=== PATIENT | male | born 1945 | race Caucasian/White ===

== ENCOUNTER → 2017-04-27 | Outpatient (CLI) | payer MEDICARE ==
[~2017-04-27] MED LIST: ASPI-1197 PO; ATEN100T PO; ATEN50TA PO; CLOP75TA14 PO; ISOS20TA7 PO; LOSA50TA37 PO; SIMV40TA59 PO; TAMS-1 PO; TRAM-355 PO
== END | disposition home or self-care (01) ==
LOC: RAH 14:17
PROVIDERS: ATTEND Physician Assistant Medical
DX: M51.36 Other intervertebral disc degeneration, lumbar region (principal); M48.061 Spinal stenosis, lumbar region without neurogenic claudication
CPT/HCPCS: 72100; 72148

== ENCOUNTER 2017-05-20 14:30 | Observation (INO) | payer MEDICARE ==
[~2017-05-20] VITALS: Ht 180.3 cm; Wt 110.1 kg
[2017-05-20 12:53] VITALS: BP 117/67
[2017-05-20 12:58] LABS: BASOPHILS % (AUTO) 0.6 % (0.0-5.0); EOSINOPHILS % (AUTO) 0.9 % (0.0-8.0); LYMPHOCYTES % (AUTO) 22.7 % (21.0-51.0); MEAN CORPUSCULAR HEMOGLOBIN 32.1 pg (27.0-33.0); MEAN CORPUSCULAR HGB CONC 34.6 g/dL (32.0-36.0); MEAN CORPUSCULAR VOLUME 92.8 fL (79-99); MONOCYTES % (AUTO) 10.1 % (3.0-13.0); NEUTROPHILS % (AUTO) 65.7 % (40.0-77.0); PLATELET COUNT (AUTO) 176 K/uL (130-400); RED BLOOD CELL COUNT(AUTO) 4.53 MIL/uL (4.50-6.20); RED CELL DISTRIBUTION WIDTH 13.8 % (11.0-15.5); WHITE BLOOD COUNT (AUTO) 6.8 K/uL (4.8-10.8)
[2017-05-20 13:12] LABS: POTASSIUM 4.4 mmol/L (3.5-5.1)
[~2017-05-20 14:30] MED LIST changes: -ATEN50TA PO
[2017-05-21] VITALS (21 sets, daily range): BP systolic 101–138; BP diastolic 60–85
[2017-05-21] MEDS: CEFAZOLIN SODIUM 1 GM VIAL IVP SCH ×2 (06:00→07:30)
[2017-05-21] MEDS ORDERED: LACTATED RINGERS 1000ML 1,000 ML IV ONE (06:33)
[2017-05-21] MEDS ORDERED: DURAMORPH PF1 MG/ML 10ML AMP IV ONE (06:37)
[2017-05-21] MEDS ORDERED: BUPIVACAINE/EPI/PF 0.25% 30ML VIAL IJ ONE (06:37)
[2017-05-21] MEDS ORDERED: BACITRACIN 50,000 UNIT VIAL ONE (06:38)
[2017-05-21] MEDS ORDERED: THROMBIN-JMI 20000 UNIT KIT TP ONE (06:38)
[2017-05-21] MEDS ORDERED: DEXAMETHASONE SOD PHOSPHATE 10MG/ML 1ML VIAL ONE (07:03)
[2017-05-21] MEDS ORDERED: GLYCOPYRROLATE 0.2 MG/ML 5 ML VIAL ONE (07:03)
[2017-05-21] MEDS ORDERED: LIDOCAINE PF 2% 5ML ABBOJECT ONE (07:03)
[2017-05-21] MEDS ORDERED: MIDAZOLAM HCL 1 MG/ML 2ML VIAL ONE (07:04)
[2017-05-21] MEDS ORDERED: PROPOFOL 10 MG/ML 20ML VIAL IV ONE (07:05)
[2017-05-21] MEDS ORDERED: FENTANYL CITRATE PF 50 MCG/1 ML 2ML VIAL ONE ×3 (07:05→10:05)
[2017-05-21] MEDS ORDERED: EPHEDRINE SULFATE 50 MG/ML AMPULE ONE (07:09)
[2017-05-21] MEDS ORDERED: CEFAZOLIN 2GM / 50 ML 50 ML IV SCH (10:30)
[2017-05-21] MEDS ORDERED: MORPHINE SULFATE 2 MG/ML 1ML SYG IVP PRN (10:30)
[2017-05-21] MEDS ORDERED: HYDROCODONE/ACETAMINOPHEN 5/325 MG TAB PO PRN (10:30)
[2017-05-21] MEDS ORDERED: SODIUM CHLORIDE 0.9% 10 ML VIAL IVP PRN (10:30)
[2017-05-21] MEDS ORDERED: PROMETHAZINE HCL 25 MG/ML 1ML AMPULE IM PRN (10:30)
[2017-05-21] MEDS ORDERED: CEFAZOLIN SODIUM 1 GM VIAL IVP SCH (11:00)
[2017-05-21] MEDS: DEXAMETHASONE SOD PHOSPHATE 4 MG/ML 1ML VIAL IVP SCH ×3 (12:09→22:33)
[2017-05-21] MEDS: TRAMADOL /APAP 37.5MG/325MG TAB PO SCH ×3 (12:10→22:35)
[2017-05-21] MEDS: LACTATED RINGERS 1000ML 1,000 ML IV SCH ×2 (12:11→23:33)
[2017-05-21] MEDS ORDERED: TAMSULOSIN HCL 0.4 MG CAP.ER.24H PO SCH (21:00)
[2017-05-21] MEDS ORDERED: ATORVASTATIN CALCIUM 10 MG TABLET PO SCH (21:00)
[2017-05-22 03:00] VITALS: BP 136/67
[2017-05-22] MEDS: DEXAMETHASONE SOD PHOSPHATE 4 MG/ML 1ML VIAL IVP SCH (04:36)
[2017-05-22] MEDS: TRAMADOL /APAP 37.5MG/325MG TAB PO SCH (04:37)
[2017-05-22 08:00] VITALS: BP 135/70
[2017-05-22 08:55] VITALS: BP 135/70
[2017-05-22] MEDS ORDERED: LOSARTAN 50 MG TABLET PO SCH (09:00)
[2017-05-22] MEDS ORDERED: ASPIRIN 81MG TAB.CHEW PO SCH (09:00)
[2017-05-22] MEDS ORDERED: ATENOLOL 50 MG TABLET PO SCH (09:00)
== END 2017-05-22 10:06 | disposition home or self-care (01) ==
LOC: DAHIP 05-21 05:39 → INTOOBSV 05-21 05:39 → 4BH 05-21 11:02 → EDSTATUS 05-21 14:30
PROVIDERS: ADMIT Neurological Surgery; ATTEND Neurological Surgery
DX: M48.061 Spinal stenosis, lumbar region without neurogenic claudication (principal); M67.48 Ganglion, other site; M24.28 Disorder of ligament, vertebrae; I25.10 Atherosclerotic heart disease of native coronary artery without angina pectoris; I10 Essential (primary) hypertension; E11.9 Type 2 diabetes mellitus without complications; Z79.899 Other long term (current) drug therapy
CPT/HCPCS: 36415; 63047; 63048; 72020; 80048; 85025; 96374; 96375; 96376 ×2; A4218; A4344; A4510; A4600; A5113; G0378 ×29; J0690 ×2; J1100 ×5; J2001; J2250; J2274; J2704; J3010 ×3; J3490 ×3; J7030; J7120 ×2

== ENCOUNTER 2018-01-23 01:30 | Observation (INO) | payer MEDICARE ==
[~2018-01-23] VITALS: Ht 182.9 cm; Wt 109.0 kg
[2018-01-23] VITALS (7 sets, daily range): BP systolic 88–162; BP diastolic 69–90
[~2018-01-23 01:30] MED LIST changes: -CLOP75TA14 PO; -ISOS20TA7 PO; +LOSA50TA25 PO; -LOSA50TA37 PO
[2018-01-23] MEDS ORDERED: ASPIRIN 81MG TAB.CHEW ONE (02:22)
[2018-01-23 02:37] LABS: BASOPHILS % (AUTO) 0.7 % (0.0-5.0); EOSINOPHILS % (AUTO) 1.2 % (0.0-8.0); HEMATOCRIT 44.6 % (42-54); LYMPHOCYTES % (AUTO) 18.7 % (21.0-51.0); MEAN CORPUSCULAR HEMOGLOBIN 31.2 pg (27.0-33.0); MEAN CORPUSCULAR HGB CONC 33.3 g/dL (32.0-36.0); MEAN CORPUSCULAR VOLUME 93.6 fL (79-99); MONOCYTES % (AUTO) 8.2 % (3.0-13.0); NEUTROPHILS % (AUTO) 71.2 % (40.0-77.0); PLATELET COUNT (AUTO) 138 K/uL (130-400); RED BLOOD CELL COUNT(AUTO) 4.76 MIL/uL (4.50-6.20); RED CELL DISTRIBUTION WIDTH 13.5 % (11.0-15.5); WHITE BLOOD COUNT (AUTO) 6.7 K/uL (4.8-10.8)
[2018-01-23 02:49] LABS: POTASSIUM 4.5 mmol/L (3.5-5.1)
[2018-01-23 02:51] LABS: APPEARANCE,URINE Clear (CLEAR); BILIRUBIN,URINE Negative (NEGATIVE); COLOR,URINE Yellow (YELLOW); GLUCOSE, URINE (UA) Negative (NEGATIVE); KETONES,URINE Negative (NEGATIVE); LEUKOCYTE ESTERASE ,URINE Trace (NEGATIVE); NITRATE,URINE Negative (NEGATIVE); OCCULT BLOOD,URINE Negative (NEGATIVE); PROTEIN,URINE Negative (NEGATIVE); UROBILINOGEN,URINE 0.2 mg/dL (0.2-1.0)
[2018-01-23 02:57] LABS: INR 0.95 (0.85-1.15); PARTIAL THROMBOPLASTIN TIME 28.2 SEC (26.3-35.5)
[2018-01-23 03:05] LABS: ALBUMIN 3.9 g/dL (3.5-5.0); BILIRUBIN,TOTAL 1.1 mg/dL (0.2-1.0); CREATININE 1.1 mg/dL (0.5-1.5); TOTAL PROTEIN, SERUM 6.9 g/dL (6.0-8.3)
[2018-01-23 03:09] LABS: BACTERIA,URINE Rare /HPF (None Seen); RBC,URINE 0-1 /HPF (0-1); WBC,URINE 0-1 /HPF (0-1)
[2018-01-23] MEDS ORDERED: ACETAMINOPHEN 325 MG TAB PO PRN (04:15)
[2018-01-23] MEDS ORDERED: ATENOLOL 50 MG TABLET PO SCH (09:00)
[2018-01-23] MEDS ORDERED: LOSARTAN 50 MG TABLET PO SCH (09:00)
[2018-01-23] MEDS: FAMOTIDINE 20MG TAB 20 MG TAB PO SCH ×2 (09:31→21:37)
[2018-01-23] MEDS: ASPIRIN 81MG TAB.CHEW PO SCH (09:31)
[2018-01-23] MEDS: ENOXAPARIN SODIUM 30 MG/0.3 ML SQ SCH (09:33)
[2018-01-23] MEDS ORDERED: MECLIZINE HCL 12.5 MG TABLET PO PRN (12:15)
[2018-01-23] MEDS ORDERED: MECL-111 PO (13:17)
[2018-01-23] MEDS ORDERED: P-EP1TBM2 PO (13:17)
[2018-01-23] MEDS ORDERED: IOHEXOL-350 75 ML VIAL IV ONE (14:07)
[2018-01-23] MEDS: METOPROLOL TARTRATE 25 MG TAB PO SCH (21:37)
[2018-01-23] MEDS: TAMSULOSIN HCL 0.4 MG CAP.ER.24H PO SCH (21:37)
[2018-01-23] MEDS: SIMVASTATIN 20 MG TABLET PO SCH (21:37)
[2018-01-24] VITALS: BP 129/72
[2018-01-24 04:00] VITALS: BP 117/61
[2018-01-24 05:40] LABS: HEMATOCRIT 42.2 % (42-54); MEAN CORPUSCULAR HEMOGLOBIN 32.2 pg (27.0-33.0); MEAN CORPUSCULAR HGB CONC 34.5 g/dL (32.0-36.0); MEAN CORPUSCULAR VOLUME 93.2 fL (79-99); PLATELET COUNT (AUTO) 156 K/uL (130-400); RED BLOOD CELL COUNT(AUTO) 4.53 MIL/uL (4.50-6.20); RED CELL DISTRIBUTION WIDTH 13.8 % (11.0-15.5); WHITE BLOOD COUNT (AUTO) 6.4 K/uL (4.8-10.8)
[2018-01-24 05:50] LABS: CREATININE 1.1 mg/dL (0.5-1.5); POTASSIUM 4.3 mmol/L (3.5-5.1)
[2018-01-24 07:00] VITALS: BP_SYST 120; BP_SYST 122; BP_SYST 136; BP_DIAS 72; BP_DIAS 73
[2018-01-24] MEDS ORDERED: LORATADINE 10 MG TABLET PO SCH (09:00)
[2018-01-24] MEDS ORDERED: LOSARTAN 50 MG TABLET PO SCH (09:00)
[2018-01-24] MEDS: FAMOTIDINE 20MG TAB 20 MG TAB PO SCH ×2 (10:00→21:21)
[2018-01-24] MEDS: ASPIRIN 81MG TAB.CHEW PO SCH (10:00)
[2018-01-24] MEDS: METOPROLOL TARTRATE 25 MG TAB PO SCH ×2 (10:01→21:21)
[2018-01-24] MEDS: ENOXAPARIN SODIUM 30 MG/0.3 ML SQ SCH (10:01)
[2018-01-24 11:00] VITALS: BP 130/76
[2018-01-24 16:00] VITALS: BP 132/68
[2018-01-24 20:00] VITALS: BP_SYST 129; BP_SYST 131; BP_SYST 141; BP_DIAS 70; BP_DIAS 74; BP_DIAS 75
[2018-01-24] MEDS: TAMSULOSIN HCL 0.4 MG CAP.ER.24H PO SCH (21:21)
[2018-01-24] MEDS: SIMVASTATIN 20 MG TABLET PO SCH (21:21)
[2018-01-25 05:29] LABS: HEMATOCRIT 42.8 % (42-54); MEAN CORPUSCULAR HEMOGLOBIN 31.4 pg (27.0-33.0); MEAN CORPUSCULAR HGB CONC 33.9 g/dL (32.0-36.0); MEAN CORPUSCULAR VOLUME 92.8 fL (79-99); NUCLEATED RED BLOOD CELLS 0.1 % (0.0-0.19); PLATELET COUNT (AUTO) 138 K/uL (130-400); RED BLOOD CELL COUNT(AUTO) 4.61 MIL/uL (4.50-6.20); RED CELL DISTRIBUTION WIDTH 13.9 % (11.0-15.5); WHITE BLOOD COUNT (AUTO) 6.8 K/uL (4.8-10.8)
[2018-01-25 05:41] LABS: CREATININE 1.1 mg/dL (0.5-1.5); POTASSIUM 4.3 mmol/L (3.5-5.1)
[2018-01-25 08:00] VITALS: BP_SYST 120; BP_SYST 125; BP_DIAS 63; BP_DIAS 65; BP_DIAS 72
[2018-01-25 12:00] VITALS: BP 142/75
[2018-01-25 16:00] VITALS: BP 126/72
[2018-01-26] MEDS ORDERED: METOPROLOL TARTRATE 25 MG TAB PO SCH (09:00)
== END 2018-01-25 19:20 | disposition home or self-care (01) ==
LOC: EDH 01:30 → EDHIP 04:00 → 3AH 04:24
PROVIDERS: ADMIT Hospitalist; ATTEND Hospitalist
DX: R42 Dizziness and giddiness (principal); R00.1 Bradycardia, unspecified; H92.09 Otalgia, unspecified ear; E66.9 Obesity, unspecified; E78.5 Hyperlipidemia, unspecified; I25.10 Atherosclerotic heart disease of native coronary artery without angina pectoris; I11.9 Hypertensive heart disease without heart failure; Z95.5 Presence of coronary angioplasty implant and graft
CPT/HCPCS: 36415 ×3; 70450; 70496; 71045; 80048 ×2; 80053; 81001; 84484; 85025; 85027 ×2; 85610; 85730; 93005; 93306; 93880; 96372 ×2; 99284; G0378 ×63; J1650 ×2; Q9967

== ENCOUNTER → 2021-05-13 | Outpatient (CLI) | payer MEDICARE ==
[~2021-05-13] MED LIST changes: -ATEN100T PO; -LOSA50TA25 PO; +LOSA50TA64 PO; +MECL-160 PO; +P-EP1TBM2 PO
[2021-05-13 12:24] LABS: CREATININE 0.9 mg/dL (0.5-1.5)
== END | disposition home or self-care (01) ==
LOC: LAB 11:38
PROVIDERS: ATTEND Neurological Surgery
DX: M54.6 Pain in thoracic spine (principal)
CPT/HCPCS: 36415; 82565; 84520

== ENCOUNTER → 2022-05-14 | Outpatient (CLI) | payer MEDICARE ==
[~2022-05-14] MED LIST changes: +DESL1TBM PO; +IOHEXOL-350 75 ML VIAL IV ONE; -P-EP1TBM2 PO
== END | disposition home or self-care (01) ==
LOC: RAH 14:32
PROVIDERS: ATTEND Internal Medicine Critical Care Medicine
DX: R22.1 Localized swelling, mass and lump, neck (principal)
CPT/HCPCS: 70491; Q9967

== ENCOUNTER → 2022-06-24 | Outpatient (CLI) | payer MEDICARE ==
[~2022-06-24] MED LIST changes: -IOHEXOL-350 75 ML VIAL IV ONE; +REGADENOSON 0.4 MG/5 ML PF SYG IVP ONE
== END | disposition home or self-care (01) ==
LOC: SHCH 08:52
PROVIDERS: ATTEND Internal Medicine Cardiovascular Disease
DX: I25.119 Atherosclerotic heart disease of native coronary artery with unspecified angina pectoris (principal); R94.39 Abnormal result of other cardiovascular function study; R06.00 Dyspnea, unspecified
CPT/HCPCS: 78452; 96374; 93017; J2785; A9500 ×2

== ENCOUNTER 2024-04-27 07:19 | Day surgery (SDC) | payer MEDICARE ==
[~2024-04-27] VITALS: Ht 182.9 cm; Wt 104.3 kg
[2024-04-27] VITALS (10 sets, daily range): BP systolic 112–144; BP diastolic 62–75; PULSE 58–72; RESP 15–20; TEMP 97.3–97.9
[~2024-04-27 07:19] MED LIST changes: -DESL1TBM PO; -MECL-160 PO; -REGADENOSON 0.4 MG/5 ML PF SYG IVP ONE; -TAMS-1 PO; -TRAM-355 PO
[2024-04-27] MEDS: 0.9%NACL 1000ML 1,000 ML IV ONE (09:01)
[2024-04-27] MEDS ORDERED: proPOFol 10 MG/ML 20ML VIAL IV ONE (10:03)
== END 2024-04-27 15:00 | disposition home or self-care (01) ==
LOC: DAH 07:19
PROVIDERS: ATTEND Internal Medicine
DX: Z12.11 Encounter for screening for malignant neoplasm of colon (principal); K63.5 Polyp of colon; I10 Essential (primary) hypertension; R17 Unspecified jaundice; Z98.890 Other specified postprocedural states; Z80.0 Family history of malignant neoplasm of digestive organs; Z79.899 Other long term (current) drug therapy
CPT/HCPCS: 45380; J7030; J2704; A4620; A4215 ×2; A4223; A4222; A4221; A4663; A4606; J3490